=== PATIENT | female | born 1995 | race African-American/Black ===

== ENCOUNTER 2017-06-15 19:32 | Emergency (ER) | payer OTHER ==
[2017-06-15 21:05] LABS: BASOPHIL 0.2 % (0-2); EOSINOPHIL 1.2 % (0-5); HCT 31.4 % (37.0-47.0); HGB 10.1 g/dl (12.5-16.0); MCH 23.3 pg (25.0-31.0); MCHC 32.2 g/dL (32.0-36.0); MCV 72.5 fL (78.0-100.0); MONOCYTE 7.8 % (0-12); NEUTROPHIL 70.8 % (41-80); PLT 186 K/uL (150-400); RBC 4.33 M/uL (4.20-5.40); RDW 19.5 % (11.5-14.0); WBC 12.7 K/uL (4.0-10.5)
[2017-06-15 21:20] LABS: ALBUMIN 3.6 g/dL (3.5-5.0); BILIRUBIN - TOTAL 0.2 mg/dL (0.1-1.0); CREATININE 0.7 mg/dL (0.5-1.0); GLOBULIN (CALCULATION) 3.6 g/dL (2.2-4.2); POTASSIUM 3.6 mmol/L (3.5-5.1); TOTAL PROTEIN 7.2 g/dL (6.4-8.3)
== END 2017-06-15 22:04 | disposition home or self-care (01) ==
LOC: FER 19:32
PROVIDERS: Emergency Medicine Emergency Medical Services
DX: O99.89 Other specified diseases and conditions complicating pregnancy, childbirth and the puerperium (principal); R10.2 Pelvic and perineal pain; R51 Headache; R11.0 Nausea; Z3A.11 11 weeks gestation of pregnancy
CPT/HCPCS: 36415; 80053; 84702; 85025

== ENCOUNTER 2021-03-18 04:53 | Emergency (ER) | payer OTHER ==
[~2021-03-18 04:53] MED LIST: AMOXICILLI400 MG/5 M PO; AMOXICILLIN500 MG PO; MULTIVITAMINS1 EAC1 PO; PRENATAL FORMU1 EACH PO; TRIMOX250 MG/5 M PO
[2021-03-18] MEDS ORDERED: IBUPROFEN800 MG PO (05:47)
[2021-03-18] MEDS ORDERED: ONDANSETRON ODT4 MG SL (05:47)
[2021-03-18] MEDS ORDERED: BENTYL10 MG PO (05:47)
[2021-03-18 06:24] LABS: BILIRUBIN NEGATIVE (NEGATIVE); BLOOD NEGATIVE Ery/uL (NEGATIVE); CLARITY HAZY (CLEAR); COLOR YELLOW (YELLOW); GLUCOSE (U) NORMAL (NORMAL); LEUKOCYTES NEGATIVE Leu/uL (NEGATIVE); NITRITE NEGATIVE (NEGATIVE); PROTEIN NEGATIVE (NEGATIVE)
== END 2021-03-18 06:06 | disposition home or self-care (01) ==
LOC: FER 04:53
PROVIDERS: Emergency Medicine Emergency Medical Services
DX: R11.2 Nausea with vomiting, unspecified (principal); R51.9 Headache, unspecified; R10.9 Unspecified abdominal pain; R68.83 Chills (without fever); T50.B95A Adverse effect of other viral vaccines, initial encounter; F17.210 Nicotine dependence, cigarettes, uncomplicated
CPT/HCPCS: 81003; 99284; J1885

== ENCOUNTER 2021-09-23 13:19 | Emergency (ER) | payer OTHER ==
[~2021-09-23 13:19] MED LIST changes: +BENTYL10 MG PO; +IBUPROFEN800 MG PO; +ONDANSETRON ODT4 MG SL
[2021-09-23 14:39] LABS: BASOPHIL 0.4 % (0-2); EOSINOPHIL 0.6 % (0-5); HCT 35.9 % (37.0-47.0); HGB 11.4 g/dl (12.5-16.0); LYMPHOCYTE 17.4 % (15-48); MCH 25.3 pg (25.0-31.0); MCHC 31.8 g/dL (32.0-36.0); MCV 79.6 fL (78.0-100.0); MONOCYTE 5.5 % (0-12); MPV 12.6 fL (6.0-9.5); NEUTROPHIL 75.6 % (41-80); NRBC 0; PLT 225 K/uL (150-400); RBC 4.51 M/uL (4.20-5.40); RDW 15.2 % (11.5-14.0); WBC 14.1 K/uL (4.0-10.5)
[2021-09-23 15:36] LABS: BILIRUBIN NEGATIVE (NEGATIVE); BLOOD NEGATIVE Ery/uL (NEGATIVE); CLARITY CLEAR (CLEAR); COLOR YELLOW (YELLOW); GLUCOSE (U) NORMAL (NORMAL); LEUKOCYTES NEGATIVE Leu/uL (NEGATIVE); NITRITE NEGATIVE (NEGATIVE); PROTEIN NEGATIVE (NEGATIVE); UROBILINOGEN 0.2 mg/dL (0.2-1.0); pH 7.5 (5.0-9.0)
[2021-09-23 15:41] LABS: ALBUMIN 3.8 g/dL (3.4-5.0); BILIRUBIN - TOTAL 0.3 mg/dL (0.2-1.0); CREATININE 0.75 mg/dL (0.51-0.95); GLOBULIN (CALCULATION) 4.4 g/dL; POTASSIUM 3.6 mmol/L (3.5-5.1); TOTAL PROTEIN 8.2 g/dL (6.4-8.2)
[2021-09-23 15:46] LABS: AMORPHOUS URATES CRYSTALS MODERATE; SQUAMOUS EPITHELIAL CELLS 20-50
[2021-09-23 15:53] LABS: HCG (URINE) SCREEN NEGATIVE (NEGATIVE)
== END 2021-09-23 16:45 | disposition home or self-care (01) ==
LOC: FER 13:19
PROVIDERS: Physician Assistant
DX: R55 Syncope and collapse (principal); R11.0 Nausea; F17.290 Nicotine dependence, other tobacco product, uncomplicated
CPT/HCPCS: 36415; 71045; 80053; 81001; 84484; 84703; 85025; 93005

== ENCOUNTER 2021-10-27 23:24 | Emergency (ER) | payer OTHER ==
[2021-10-28 02:20] LABS: BASOPHIL 0.5 % (0-2); EOSINOPHIL 0.7 % (0-5); HCT 37.6 % (37.0-47.0); HGB 11.8 g/dl (12.5-16.0); LYMPHOCYTE 23.3 % (15-48); MCH 24.7 pg (25.0-31.0); MCHC 31.4 g/dL (32.0-36.0); MCV 78.8 fL (78.0-100.0); MONOCYTE 7.7 % (0-12); MPV 12.8 fL (6.0-9.5); NEUTROPHIL 67.5 % (41-80); NRBC 0; PLT 227 K/uL (150-400); RBC 4.77 M/uL (4.20-5.40); RDW 14.6 % (11.5-14.0); WBC 10.6 K/uL (4.0-10.5)
[2021-10-28 02:46] LABS: ALBUMIN 3.6 g/dL (3.4-5.0); BILIRUBIN - TOTAL 0.3 mg/dL (0.2-1.0); BUN/CREAT RATIO (CALC) 9.6 RATIO; CREATININE 0.83 mg/dL (0.51-0.95); GLOBULIN (CALCULATION) 4.3 g/dL; POTASSIUM 3.2 mmol/L (3.5-5.1); TOTAL PROTEIN 7.9 g/dL (6.4-8.2)
== END 2021-10-28 05:10 | disposition home or self-care (01) ==
LOC: FER 23:24
PROVIDERS: Emergency Medicine
DX: R55 Syncope and collapse (principal); Z20.822 Contact with and (suspected) exposure to COVID-19
CPT/HCPCS: 36415; 80053; 84484; 85025; 85379; J7030; U0002

== ENCOUNTER 2022-06-17 08:50 | Emergency (ER) | payer OTHER ==
[2022-06-17 09:31] LABS: BASOPHIL 0.4 % (0-2); EOSINOPHIL 0.7 % (0-5); HCT 36.4 % (37.0-47.0); HGB 11.5 g/dl (12.5-16.0); MCH 24.9 pg (25.0-31.0); MCHC 31.6 g/dL (32.0-36.0); MPV 11.9 fL (6.0-9.5); NEUTROPHIL 76.5 % (41-80); NRBC 0; PLT 209 K/uL (150-400); RBC 4.61 M/uL (4.20-5.40); RDW 16.7 % (11.5-14.0); WBC 9.2 K/uL (4.0-10.5)
[2022-06-17 10:00] LABS: ALBUMIN 3.4 g/dL (3.4-5.0); BILIRUBIN - TOTAL 0.5 mg/dL (0.2-1.0); BUN/CREAT RATIO (CALC) 10.8 RATIO; CREATININE 0.74 mg/dL (0.51-0.95); GLOBULIN (CALCULATION) 4.6 g/dL; POTASSIUM 3.5 mmol/L (3.5-5.1)
[2022-06-17 10:05] LABS: CORONAVIRUS 2019 SARS-COV-2 NEGATIVE (NEGATIVE); INFLUENZA A NAA NEGATIVE (NEGATIVE)
[2022-06-17 11:16] LABS: CLARITY CLEAR (CLEAR); COLOR YELLOW (YELLOW); GLUCOSE (U) NORMAL (NORMAL); PROTEIN NEGATIVE (NEGATIVE)
[2022-06-17 11:17] LABS: BILIRUBIN NEGATIVE (NEGATIVE); BLOOD NEGATIVE Ery/uL (NEGATIVE); LEUKOCYTES NEGATIVE Leu/uL (NEGATIVE); NITRITE NEGATIVE (NEGATIVE)
[2022-06-17] MEDS ORDERED: NAPROXEN500 MG PO (11:25)
== END 2022-06-17 13:16 | disposition home or self-care (01) ==
LOC: FER 08:50
PROVIDERS: Internal Medicine
DX: N83.201 Unspecified ovarian cyst, right side (principal); Z20.822 Contact with and (suspected) exposure to COVID-19
CPT/HCPCS: 36415; 80053; 81003; 83605; 83690; 85025; J1885; J2270; J2405; U0002